=== PATIENT | female | born 1985 | race Caucasian/White ===

== ENCOUNTER 2017-08-27 | Inpatient (IN) | payer BC ==
[2017-08-27] MEDS ORDERED: Promethazine INJ(RESTRICTED)* 25 MG/ML 1 ML VIAL IV ONE ×2 (00:50→09:21)
[2017-08-27] MEDS ORDERED: Nalbuphine* 20 MG/ML 1 ML VIAL IV ONE ×2 (00:50→09:21)
[2017-08-27 01:19] LABS: Hematocrit 36 % (35-47); Mean Corpuscular HGB Conc 34 g/dl (31-36); Mean Corpuscular Hemoglobin 28 pg (27-31); Mean Corpuscular Volume 82 fL (80-97); Mean Platelet Volume 8 um3 (7.4-10.4); Red Blood Count 4.32 10^6/ul (4.0-5.4); Red Cell Distribution Width 14 % (10.5-15); White Blood Count 13.7 10^3/ul (3.5-10.8)
[2017-08-27] MEDS: Vancomycin(*) 1,000 MG in NS 0.9% 250 ML* 250 ML IVPB SCH ×2 (04:44→16:36)
[2017-08-27] MEDS ORDERED: Promethazine INJ(RESTRICTED)* 25 MG/ML 1 ML VIAL ONE (09:52)
[2017-08-27] MEDS ORDERED: Nalbuphine* 20 MG/ML 1 ML VIAL ONE (09:52)
[2017-08-27] MEDS ORDERED: Oxytocin in LR* 20 UNITS/1,000 ML BAG IVPB SCH (16:00)
[2017-08-27] MEDS ORDERED: OBEPIDURAL* 250 ML ONE (17:44)
[2017-08-27] MEDS ORDERED: Sodium Citrate/Citric Acid* 15 ML UDC PO PRN (19:07)
[2017-08-27] MEDS ORDERED: Phenylephrine IV* 40 MCG/ML 10 ML SYRINGE IV PUSH PRN ×2 (19:07)
[2017-08-27] MEDS ORDERED: OBEPIDURAL* 250 ML EPIDURAL SCH (20:00)
[2017-08-28] MEDS: Vancomycin(*) 1,000 MG in NS 0.9% 250 ML* 250 ML IVPB SCH (04:35)
[2017-08-28] MEDS ORDERED: RHO D Immune Globulin (HUMAN)* 300 MCG = 1,500 I.U. INJ IM ONE (06:11)
[2017-08-28] MEDS ORDERED: Acetaminophen TAB* 325 MG PO PRN (06:11)
[2017-08-28] MEDS ORDERED: Measles, Mumps,Rubella VACC* 0.5 ML/VIAL SUBCUT ONE (06:11)
[2017-08-28] MEDS ORDERED: Witch Hazel PAD* JAR TOPICAL PRN (06:11)
[2017-08-28] MEDS ORDERED: Glycerin ADULT SUPP PR PRN (06:11)
[2017-08-28] MEDS ORDERED: Dibucaine 1% 28.35 GM TUBE PR PRN (06:11)
[2017-08-28] MEDS ORDERED: Oxytocin in LR* 20 UNITS/1,000 ML BAG IVPB SCH (07:00)
[2017-08-28] MEDS: Ibuprofen TAB* 600 MG PO PRN ×3 (10:31→22:59)
[2017-08-28] MEDS: Docusate CAP* 100 MG PO SCH ×3 (10:31→22:59)
[2017-08-29] MEDS: Ibuprofen TAB* 600 MG PO PRN ×3 (06:24→22:24)
[2017-08-29 07:20] LABS: Hematocrit 31 % (35-47); Hemoglobin 10.5 g/dl (12.0-16.0); Mean Corpuscular HGB Conc 34 g/dl (31-36); Mean Corpuscular Hemoglobin 28 pg (27-31); Mean Corpuscular Volume 84 fL (80-97); Mean Platelet Volume 8 um3 (7.4-10.4); Red Blood Count 3.71 10^6/ul (4.0-5.4); Red Cell Distribution Width 14 % (10.5-15); White Blood Count 14.5 10^3/ul (3.5-10.8)
[2017-08-29] MEDS ORDERED: Ferrous Gluconate TAB* 324 MG TAB PO SCH (09:00)
[2017-08-29] MEDS: Docusate CAP* 100 MG PO SCH ×2 (16:02→22:24)
[2017-08-29 20:58] VITALS: BP 126/87
[2017-08-30] MEDS: Ibuprofen TAB* 600 MG PO PRN ×2 (05:34→11:58)
[2017-08-30] MEDS: Docusate CAP* 100 MG PO SCH (08:04)
== END 2017-08-30 11:45 | disposition home or self-care (01) | DRG 560 ==
LOC: MCHOBOUT → MCHOB 00:48
PROVIDERS: ADMIT Midwife; ATTEND Midwife
PROC: 4A1H74Z Monitoring of Products of Conception, Cardiac Electrical Activity, Via Natural or Artificial Opening (ICD-10-PCS; 2017-08-27)
PROC: 0KQM0ZZ Repair Perineum Muscle, Open Approach (ICD-10-PCS; 2017-08-27)
PROC: 10E0XZZ Delivery of Products of Conception, External Approach (ICD-10-PCS; 2017-08-27)
PROC: 10H07YZ Insertion of Other Device into Products of Conception, Via Natural or Artificial Opening (ICD-10-PCS; principal; 2017-08-28)
DX: O48.0 Post-term pregnancy (principal); K64.9 Unspecified hemorrhoids; Z3A.41 41 weeks gestation of pregnancy; Z37.0 Single live birth; O99.824 Streptococcus B carrier state complicating childbirth; Z88.0 Allergy status to penicillin; Z88.1 Allergy status to other antibiotic agents; Z88.7 Allergy status to serum and vaccine; O66.0 Obstructed labor due to shoulder dystocia; O75.89 Other specified complications of labor and delivery; O70.1 Second degree perineal laceration during delivery
CPT/HCPCS: 36415; 85025; 85461; 86850; 86900; 86901; A9270-GY; J2300; J2550; J2790; J3370

== ENCOUNTER 2018-07-08 09:57 | Emergency (ER) | payer BC ==
[2018-07-08 10:08] VITALS: BP 104/73
--- NOTE | 2018-07-08 10:19 | UC ---
Skin Complaint HPI - HPI Summary HPI Summary: Pt presents with c/o of "boils" on left forearm that began suddenly, are painful and develop a pustular "head". Pt has known exposure to MRSA - History of Current Complaint Chief Complaint: UCSkin Time Seen by Provider: 07/08/18 10:00 Stated Complaint: SKIN ISSUE Hx Obtained From: Patient Hx Last Menstrual Period: 07/03/18 ?: No Onset/Duration: Sudden Onset Skin Exposure Onset/Duration: Days Ago Timing: Constant Onset Severity: Mild Current Severity: Mild Pain Intensity: 1 Location: Discrete - left forearm Character: Redness, Raised, Painful Aggravating Factor(s): Touch Alleviating Factor(s): Nothing Associated Signs & Symptoms: Positive: Tenderness - Allergy/Home Medications Allergies/Adverse Reactions: Allergies Allergy/AdvReac Type Severity Reaction Status Date / Time cefaclor [From [facility]] Allergy Hives Verified 07/08/18 10:02 Penicillins Allergy Hives Verified 07/08/18 10:02 Pertussis Vaccines Allergy anaph Verified 07/08/18 10:03 Home Medications: Home Medications Magnesium Oxide [Magnesium] 400 mg PO DAILY 07/08/18 [History Confirmed 07/08/18 ] Review of Systems Constitutional: Negative Skin: Other - "boils" Eyes: Negative ENT: Negative Respiratory: Negative Cardiovascular: Negative Gastrointestinal: Negative Genitourinary: Negative Motor: Negative Neurovascular: Negative Musculoskeletal: Negative Neurological: Negative Psychological: Negative Is Patient Immunocompromised?: No All Other Systems Reviewed And Are Negative: Yes PMH/Surg Hx/FS Hx/Imm Hx Previously Healthy: Yes - Surgical History Surgical History: Yes Surgery Procedure, Year, and Place: ear tubes - Family History Known Family History: Positive: Cardiac Disease - Social History Occupation: Employed Part-time Lives: With Family Alcohol Use: None Substance Use Type: None Smoking Status (MU): Never Smoked Tobacco Have You Smoked in the Last Year: No - Immunization History Most Recent Influenza Vaccination: uknown Most Recent Pneumonia Vaccination: none Physical Exam Triage Information Reviewed: Yes Appearance: Well-Appearing Vital Signs: Initial Vital Signs Temp 98 F 07/08/18 10:05 Pulse 68 07/08/18 10:05 Resp 18 07/08/18 10:05 BP 104/73 07/08/18 10:05 Pulse Ox 100 07/08/18 10:05 Vital Signs Reviewed: No Eye Exam: Normal ENT: Positive: Hearing grossly normal Dental Exam: Normal Neck exam: Normal Respiratory: Positive: No respiratory distress Musculoskeletal Exam: Normal Neurological Exam: Normal Psychological Exam: Normal Skin Exam: Other - 8+ scattered red, rasied, pustules on left forearm, with purulent "heads". Pt is also concerned about lyme. Course/Dx - Differential Diagnoses - Skin Complaint Differential Diagnoses: Cellulitis, MRSA - Diagnoses Provider Diagnoses: folliculitis Discharge - Sign-Out/Discharge Documenting (check all that apply): Patient Departure - Discharge Plan Condition: Stable Disposition: HOME Prescriptions: Sulfamethox/Trimethoprim DS* [Bactrim DS 800/160 TAB*] 1 tab PO Q12H #14 tab Patient Education Materials: Folliculitis (ED) Referrals: [facility] [Outside] - If Needed No Primary Care Phys,NOPCP [Primary Care Provider] - - Billing Disposition and Condition Condition: STABLE Disposition: Home Attestation Statement User Type: Provider - I was available for consult. This patient was seen by the VIDAL. The patient was not presented to, seen by, or examined by me. -Jenny
--- NOTE | 2018-07-10 18:58 | PN ---
Progress Note - Progress Note Date of Service: 07/10/18 Note: Patient's wound culture grew Pseudomonas. Patient with some Bactrim which is resistant to such. sent a prescription for Cipro 500 mg twice a day for 10 days. She should stop Bactrim. Call patient's to inform of change.
== END 2018-07-08 10:37 | disposition home or self-care (01) ==
LOC: UCEAST 09:57
DX: L73.9 Follicular disorder, unspecified (principal); Z88.1 Allergy status to other antibiotic agents; Z88.0 Allergy status to penicillin; Z88.7 Allergy status to serum and vaccine
CPT/HCPCS: 86618; 87070; 87077; 87186; 87205; 99212; G0463

== ENCOUNTER 2020-08-25 09:19 | Inpatient (IN) ==
[~2020-08-25 09:19] MED LIST: Buffered Lidocaine 1% SYRIN 1 ml INTRADERM ONE; Lactated Ringers 1000 ml BAG 1,000 ML IV SCH; Ondansetron 4 mg VIAL 2 MG/ML 2 ml VIAL IV ONE; Sodium Citrate/Citric Acid LIQ 15 ML UDC PO ONE
[2020-08-25] MEDS ORDERED: ceFOXitin 2 GM IVPREMIX 2 GM/50 ML BAG IVPB ONE (10:36)
[2020-08-25] MEDS ORDERED: fentaNYL 100 mcg/2 ml 50 MCG/ML VIAL ONE (10:41)
[2020-08-25] MEDS ORDERED: ceFOXitin 2 GM IVPREMIX 2 GM/50 ML BAG ONE (10:41)
[2020-08-25] MEDS ORDERED: Morphine PF AMP (0.5MG/ML) 5 MG/10 ML AMP ONE (10:42)
[2020-08-25] MEDS ORDERED: ceFAZolin 2 GM PREMIX 2 GM/50 ML BAG ONE (10:43)
[2020-08-25] MEDS ORDERED: Phenylephrine 40 mcg/mL 10mL (400mcg) SYRINGE ONE ×2 (10:55→11:27)
[2020-08-25] MEDS ORDERED: Ondansetron 4 mg VIAL 2 MG/ML 2 ml VIAL ONE (11:03)
[2020-08-25] MEDS ORDERED: Oxytocin 10 UNITS/ML 1 ML VIAL ONE (11:30)
[2020-08-25] MEDS ORDERED: Metoclopramide 5 MG/ML VIAL (10 mg) IV PRN ×2 (11:52→11:55)
[2020-08-25] MEDS ORDERED: Naloxone 0.4 mg VIAL 0.4 mg/ml 1 ml VIAL IV PRN ×2 (11:52→11:55)
[2020-08-25] MEDS ORDERED: oxyCODONE/Acetamin 5/325 mg TAB PO PRN (11:52)
[2020-08-25] MEDS ORDERED: Ondansetron 4 mg VIAL 2 MG/ML 2 ml VIAL IV PRN (11:52)
[2020-08-25] MEDS ORDERED: fentaNYL 100 mcg/2 ml 50 MCG/ML VIAL IV PRN (11:55)
[2020-08-25] MEDS ORDERED: Acetaminophen IV 1 GM/100ML 1,000 MG/100 ML VIAL IVPB ONE (11:55)
[2020-08-25] MEDS ORDERED: RHO D Immune Globulin (HUMAN) 300 MCG = 1,500 I.U. INJ IM PRN (12:13)
[2020-08-25] MEDS ORDERED: Dibucaine 1% OINT 28.35 GM TUBE PR PRN (12:13)
[2020-08-25] MEDS ORDERED: Witch Hazel PAD JAR TOPICAL PRN (12:13)
[2020-08-25] MEDS ORDERED: Glycerin ADULT 2.4 gm SUPP PR PRN (12:13)
[2020-08-25] MEDS ORDERED: Tetan/Diph/Pertus SYR(Tdap) 0.5 ML SYR(BOOSTRIX) use SYR contains LATEX IM ONE (12:13)
[2020-08-25] MEDS ORDERED: Measles, Mumps,Rubella VACC 0.5 ML/VIAL SUBCUT ONE (12:13)
[2020-08-25] MEDS ORDERED: Oxytocin in LR 20 UNITS/1,000 ML BAG IVPB ONE (12:24)
[2020-08-25] MEDS ORDERED: Acetaminophen IV 1 GM/100ML 100 ML ONE (12:24)
[2020-08-25] MEDS ORDERED: Oxytocin in LR 20 UNITS/1,000 ML BAG IVPB SCH (13:00)
[2020-08-25] MEDS ORDERED: Lactated Ringers 1000 ml BAG 1,000 ML IV SCH (13:00)
[2020-08-26 08:08] LABS: ABS Eosinophils 0.2 10^3/ul (0-0.6); ABS Lymphocytes 2.1 10^3/ul (1.0-4.8); ABS Monocytes 0.7 10^3/ul (0-0.8); ABS Neutrophils 6.1 10^3/ul (1.5-7.7); Eosinophil % 1.7 %; Hematocrit 27 % (35-47); Hemoglobin 9.1 g/dL (12.0-16.0); Lymphocyte % 23.3 %; Mean Corpuscular HGB Conc 34 g/dL (31-36); Mean Corpuscular Hemoglobin 26 pg (27-31); Mean Corpuscular Volume 76 fL (80-97); Mean Platelet Volume 7.6 fL (7.4-10.4); Platelet Count 172 10^3/uL (150-450); Red Blood Count 3.52 10^6 /uL (3.70-4.87); Red Cell Distribution Width 14 % (10-15); White Blood Count 9.1 10^3/uL (3.5-10.8)
[2020-08-28 09:06] VITALS: BP 114/71
== END 2020-08-28 17:52 | disposition home or self-care (01) | DRG 540 ==
LOC: MCHOB 09:19
PROVIDERS: ADMIT Obstetrics & Gynecology; ATTEND Obstetrics & Gynecology